=== PATIENT | female | born 1970 | race Caucasian/White ===

== ENCOUNTER 2021-05-27 22:17 | Emergency (ER) | payer OTHER, SELFPAY ==
[2021-05-27 22:24] VITALS: BP 166/87; PULSE 73; RESP 17; TEMP 37; O2SAT 100; BMI 23.0
[2021-05-27] MEDS: HYDROMORPHONE 1 MG INJ 2 MG IM (23:21)
[2021-05-27] MEDS: dexAMETHasone 4 MG TABLET 8 MG PO (23:21)
[2021-05-27] MEDS: carBAMazepine 200 MG TABLET PO (23:21)
--- NOTE | 2021-05-27 23:21 | ED.DENTAL ---
HPI - Dental/Oral General Chief complaint: Dental/Oral Stated complaint: BAD MOUTH DENTAL PAIN RIGHT SIDE Time Seen by Provider: 05/27/21 22:21 Source: patient Mode of arrival: Ambulatory Limitations: no limitations History of Present Illness HPI Narrative: 50-year-old woman with no significant medical history presents with ongoing right upper quadrant mouth/facial pain. She has tooth 5. That has been removed, 4. Is a dental implant this is tender and now both 3 and 6 are slightly tender. She has a history of chronic sinus issues as well as headaches and is having burning pain across the maxilla into the right side of the upper arch without abscess drainage or formation. At 1 point she was on amoxicillin and seem to be improving slightly however once stopping pain returned. She was seen by her dentist this morning who did x-rays but did not identify obvious abscess. Possibility of trigeminal neuralgia as a source of her pain was discussed. She has an appointment with the ear nose and throat physician coming up in mid June and her primary care provider next week. She has been using Excedrin, ibuprofen, Tylenol and has a couple of 2 mg Dilaudid tablets left over and combinations of all of these have not been effective pain control. After lying down to sleep today she found that she could not lay flat and could not get comfortable and was simply suffering enough that she was willing to come to the ER for additional help. She describes no fevers, cough, chest pain or palpitations. She does have occasional nausea but no vomiting. No abdominal pain constipation diarrhea dysuria. Related Data Home Medications Medication Instructions Recorded Confirmed ibuprofen 200 mg tablet (Advil) #0 01/29/13 Previous Rx's Medication Instructions Recorded carbamazepine 200 mg tablet 200 mg PO BID #60 tab 05/27/21 dexamethasone 4 mg tablet 8 mg PO DAILY #4 tab 05/27/21 hydromorphone 2 mg tablet 2 - 4 mg PO Q6H PRN #20 tab 05/27/21 Allergies Allergy/AdvReac Type Severity Reaction Status Date / Time CODEINE Allergy Unknown ABDOMINAL Uncoded 11/17/17 13:10 PAIN Review of Systems Review of Systems Narrative: Remainder of complete review of systems is otherwise unremarkable except for that included in the HPI. Patient History Social History Smoking Status: Never smoker Smoking Status: Never smoker alcohol intake frequency: a few times a month Substance Use Type: does not use Exam Narrative Exam Narrative: General: Alert appropriate in no acute distress HEENT: Tender from the pre-auricular area across the maxilla on the right side without inflammation or redness. Missing tooth 5. And the gum around that space looks healthy. Tooth 4, dental implant, somewhat tender with percussion. Tooth 3. Is somewhat tender to percussion as is tooth 6. No tenderness to percussion of maxillary sinus on the right side. No nasal discharge. Neck: No cervical adenopathy Respiratory: Able to speak in full sentences, no obvious respiratory distress Skin: No obvious rashes, warm and dry Neurologic: Grossly intact no obvious asymmetries or abnormalities Psych: appropriate insight and affect, cooperative Initial Vital Signs Initial Vital Signs: Vital Signs Temperature 98.6 F 05/27/21 22:24 Pulse Rate 73 05/27/21 22:24 Respiratory Rate 17 05/27/21 22:24 Blood Pressure 166/87 H 05/27/21 22:24 Pulse Oximetry 100 05/27/21 22:24 Course Orders Ordered: Discontinued Medications Carbamazepine (Carbamazepine 200 Mg Tablet) 200 mg PO NOW ONE Stop: 05/27/21 23:09 Dexamethasone (Dexamethasone 4 Mg Tablet) 8 mg PO NOW ONE Stop: 05/27/21 23:09 Hydromorphone HCl (Hydromorphone 1 Mg Inj) 2 mg IM NOW ONE Stop: 05/27/21 23:09 Vital Signs Vital signs: Vital Signs - 8 hr 05/27/21 22:24 Temperature 98.6 F Pulse Rate 73 Respiratory Rate 17 Blood Pressure 166/87 H Pulse Oximetry 100 MDM - Dental/Oral MDM Narrative Medical decision making narrative: 50-year-old woman with ongoing right upper quadrant dental/face pain. Possibilities include dental infection, complications with her implant, sinus infection, trigeminal neuralgia or other dental infection. At this time she is already on antibiotics will ask her to continue these. Will refill her Dilaudid and talked about more effective dosing of ibuprofen and Tylenol. Will add 3 days of Decadron for inflammation control. Have also suggested that she schedule an appointment with the oral surgeon for additional imaging and diagnostic help. Her tennis did mention the possibility of trigeminal neuralgia in giving the burning deep type neuropathic pain she is describing certainly is a possibility so Tegretol is added to the pain regimen with suggestions that she follow-up with her primary care physician. At this point there are no life-threatening issues and she is safe for home discharge. Discharge Plan Departure Patient Disposition: Home Clinical Impression: Acute facial pain Dental implant pain Qualifiers: Encounter type: initial encounter Qualified Code(s): T85.848A - Pain due to other internal prosthetic devices, implants and grafts, initial encounter Instructions: Trigeminal Neuralgia, DI for Dental Pain Activity Restrictions/Additional Instructions: Thank you for coming in today. It seems you have a lot going on There are multiple reasons that you could be having pain and it may be that there are multiple components of each of these. At this time, I am going to suggest that we treat each of the options and also suggest that you follow-up with Dr. Gerson Abreu, oral surgeon. He has the advanced imaging technology and the appropriate spectrum of clinical skills to help get to the bottom of this diagnostic dilemma In the meantime: For infection, please continue the Augmentin you are currently taking (total of 7 days) For inflammation, I am going to have you do 3 days of Decadron, 8 mg daily. You had your 1st dose in the emergency department For the possibility of trigeminal neuralgia, I am going to have you try 200 mg of Tegretol. This will need follow-up with your primary care physician. If alternate diagnoses are found, this medicine can be stopped. For acute pain control, using ibuprofen 400 mg with 1 Tylenol every 6 hours may be helpful. For severe pain you can add 2-4 mg of oral Dilaudid to this combination. Prescriptions: New dexamethasone 4 mg tablet 8 mg PO DAILY Qty: 4 RF: 0 carbamazepine 200 mg tablet 200 mg PO BID Qty: 60 RF: 0 hydromorphone 2 mg tablet 2 - 4 mg PO Q6H PRN (Reason: pain) Qty: 20 RF: 0 No Action ibuprofen [Advil] 200 MG tablet Qty: 0 RF: 0 Referrals: Gerson Abreu DMD [Physician] - Elisabet Peters PA-C [Primary Care Provider] -
[2021-05-27 23:42] VITALS: BP 147/82; PULSE 69; RESP 15; O2SAT 97
== END 2021-05-27 23:44 | disposition home or self-care (01) ==
PROVIDERS: Emergency Provider Emergency Medicine; Family Provider Physician Assistant; PCP Physician Assistant
DX: M27.69 Other endosseous dental implant failure (principal); R51.9 Headache, unspecified
CPT/HCPCS: 96372; 99283; J1170

== ENCOUNTER → 2021-06-25 12:36 | Outpatient (CLI) | payer OTHER, SELFPAY ==
--- NOTE | 2021-06-25 | DI.MRI.S_ITS ---
PROCEDURE: MR HEAD/BRAIN WO/W CON INDICATIONS: Atypical facial pain TECHNIQUE: Noncontrast axial T1 spin echo, axial T2 fast spin echo, sagittal and axial FLAIR, coronal T2 fast spin echo, axial gradient echo, axial diffusion and ADC through the brain. After the administration of contrast, axial and coronal 3D VIBE or T1 spin echo with fat saturation through the brain. COMPARISON: [facility], CT, CT ENT SINUS WITHOUT CONTRAST, 06/20/2021, 13:16. FINDINGS: Image quality: Excellent. CSF Spaces: Basal cisterns are patent. No extra-axial fluid collections. Ventricles are normal in size and shape. Brain: In this patient with this given history, scrutiny is given to the trigeminal nerves. To the limits of this standard protocol study, no abnormalities can be seen of the trigeminal nerves, including within the Meckel's caves. No midline shift. No intracranial bleeds or masses. No abnormal intracranial enhancement. The brainstem appears normal. Diffusion-weighted images demonstrate no acute ischemic insults. No chronic ischemic insults. Normal intravascular flow voids are present. Skull and face: Calvarial marrow is normal in signal. Orbits appear normal. Sinuses: Sinuses and mastoids appear clear. IMPRESSION: To the limits of this standard protocol study, no imaging explanation is found for the patient's presenting symptoms. No masses or abnormal enhancement can be seen. Dictated by: Heath Han M.D. on 06/25/2021 at 13:06 Approved by: Heath Han M.D. on 06/25/2021 at 13:08
== END ==
PROVIDERS: Family Provider Physician Assistant; PCP Student in an Organized Health Care Education/Training Program; Referring Provider Dentist; Visit Provider Dentist
DX: G50.1 Atypical facial pain (principal)
CPT/HCPCS: 70553; A9579

== ENCOUNTER → 2022-12-21 07:10 | Outpatient (CLI) | payer OTHER, SELFPAY ==
[2022-12-21 08:47] LABS: Add Manual Diff / Slide Review NO; Basophils Absolute Auto 0 /uL (0-100); Basophils Percent Auto 1.2 % (0-2); Eosinophils Absolute Auto 100 /uL (0-450); Hematocrit 39.2 % (36-46); Hemoglobin 13.4 g/dL (12.0-16.0); Lymphocytes Absolute Auto 1000 /uL (1100-4500); Lymphocytes Percent Auto 31.7 % (25-40); Mean Corpuscular HGB Conc 34.3 % (30-36); Mean Corpuscular Hemoglobin 30.9 PG (26-34); Monocytes Absolute Auto 300 /uL (0-900); Monocytes Percent Auto 7.7 % (3-14); Neutrophils Absolute Auto 1800 /uL (1500-7000); Neutrophils Percent Auto 55.4 % (50-75); Platelet Count 183 X10^3/uL (150-400); Red Blood Cell Count 4.35 X10^6/uL (4.0-5.2); Red Cell Distribution Width 13.8 % (11.6-14.8); White Blood Cell Count 3.3 X10^3/uL (4.5-11.0)
[2022-12-21 09:01] LABS: Alanine Aminotransferase 17 IU/L (<35); Albumin 4.2 g/dL (3.5-5.0); Albumin Globulin Ratio 1.4 (1.0-2.8); Alkaline Phosphatase 44 U/L (38-126); Aspartate Aminotransferase 24 IU/L (14-36); BUN Creatinine Ratio 13.8 (6-22); Blood Urea Nitrogen 11 mg/dL (7-17); Carbon Dioxide 29 mmol/L (22-32); Chloride 102 mmol/L (98-107); Cholesterol 213 mg/dL (140-199); Estimated Glomerular Filt Rate > 60 mL/min (>60); Globulin 3.1 g/dL (1.7-4.1); Glucose 84 mg/dL (70-100); HDL Cholesterol 77 mg/dL (40-60); HEMOLYSIS < 15 (0-50); LDL Cholesterol Calculated 127 mg/dL (<100); Potassium 4.1 mmol/L (3.4-5.1); Sodium 136 mmol/L (137-145); Total Protein 7.3 g/dL (6.3-8.2); Triglycerides 44 mg/dL (35-150)
[2022-12-21 09:35] LABS: Free T3, Triiodothyronine Free 3.42 pg/mL (2.77-5.27); Free T4, Direct Thyroxine 1.18 ng/dL (0.78-2.19)
[2022-12-21 09:49] LABS: Thyroid Stimulating Hormone 1.72 uIU/mL (0.47-4.68)
[2022-12-21 09:55] LABS: Creatinine Urine Random 185.2 mg/dL
[2022-12-21 10:00] LABS: Microalbumi Creatinin Ratio Ur 4.8 ug/mg CR (<30); Microalbumin Urine Random 0.9 mg/dL (0-1.6)
[2022-12-21 16:11] LABS: HIV 1 & 2 Ab/Ag 4th Gen Combo NEGATIVE (NEGATIVE); Hep C Virus Ab w/Reflex Quant NEGATIVE s/c (NEGATIVE)
== END ==
PROVIDERS: Family Provider Physician Assistant; PCP Nurse Practitioner; Referring Provider Nurse Practitioner; Visit Provider Nurse Practitioner
DX: Z00.00 Encounter for general adult medical examination without abnormal findings (principal); Z11.59 Encounter for screening for other viral diseases; Z11.4 Encounter for screening for human immunodeficiency virus [HIV]
CPT/HCPCS: 36415; 80053; 80061; 82043; 82570; 84439; 84443; 84481; 85025; 86803; 87389

== ENCOUNTER 2023-03-11 06:38 | Day surgery (SDC) | payer OTHER, SELFPAY ==
[2023-03-11] VITALS (7 sets, daily range): BP systolic 117–138; BP diastolic 73–86; PULSE 71–84; RESP 12–16; TEMP 35.8–36.3; O2SAT 98–100; BMI 23.0
[2023-03-11] MEDS: LACTATED RINGERS 1,000 ML 150 ML IV (07:12)
--- NOTE | 2023-03-11 07:42 | P.HP_ITS ---
History of Present Illness History of Present Illness Date Patient Seen: 03/11/23 Time Patient Seen: 07:42 Chief complaint: Screening Colonoscopy Narrative: Kristi is a 52-year-old woman who is here for a screening colonoscopy. She has never had 1 before. She has no known family history of colon cancer. [facility] Medical History (Updated 03/11/23 @ 07:42 by Chris Mcnair MD) Anxiety (~2020) BMS (burning mouth syndrome) (~2020) Chronic cough (~2021) Hyperlipidemia Migraines Family History Father History of heart disease Hypertension Hyperlipidemia Mother Low sodium levels Low TSH level Grandfather Cancer Grandmother HIV disease Grandfather History of heart disease Social History household members: significant other Smoking Status: Never smoker Meds Home Medications and Allergies Home Medications Medication Instructions Recorded Confirmed Type doxepin 10 mg/mL oral concentrate 10 mg PO DAILY PRN Sleep 10/27/22 03/11/23 History nortriptyline 10 mg capsule 30 mg PO BEDTIME sleep 10/27/22 03/11/23 History hydroxyzine pamoate 50 mg capsule 50 mg PO QID PRN burning mouth 01/11/23 03/11/23 Rx (Vistaril) disease #30 caps sumatriptan succinate 100 mg tablet See Rx Instructions PO .COMPLEX 01/11/23 01/11/23 Rx #27 tabs peg 3350-electrolytes 236 240 ml PO Q10M #4,000 mL 02/18/23 Rx gram-22.74 gram-6.74 gram-5.86 gram solution (Golytely) Allergies Allergy/AdvReac Type Severity Reaction Status Date / Time carbamazepine [From Tegretol] Allergy Mild Dizziness Verified 03/11/23 06:57 CODEINE Allergy Unknown ABDOMINAL Uncoded 03/11/23 06:57 PAIN Exam Vital Signs (past 8 hours): - 03/11/23 07:00 Temperature 97.3 F L Pulse Rate 79 Respiratory Rate 16 Blood Pressure 127/81 Pulse Oximetry 98 Oxygen Delivery Method Room Air Oxygen Delivery Method Room Air Const General: healthy appearing Assessment & Plan Assessment and plan (1) Colon cancer screening: Status: Acute Plan We reviewed the risks and benefits of colonoscopy for colon cancer screening and she would like to proceed.
--- NOTE | 2023-03-11 08:25 | PM.OP.COLON ---
Operative Date/Time/Diagnoses Date of procedure: 03/11/23 Time of procedure: 08:25 Pre-op diagnosis: Colon cancer screening Post-op diagnosis: same Procedure & Clinicians Study performed: Colonoscopy Same procedure as scheduled: Yes Surgeon: Chris Mcnair Procedure Notes Procedure in detail: Surgeon: Chris Mcnair MD Anesthesia: Dinesh Camejo CRNA Procedure: The patient was brought to the endoscopy suite, placed in left lateral decubitus position. The patient was connected to monitoring devices. A time-out was performed. Sedation was administered. Once the patient was adequately sedated, a digital rectal exam was performed and was normal. The scope was then inserted and advanced to the cecum where the appendiceal orifice was identified and photographed. Prep was good overall that she would a lot of seeds in her colon to be irrigated out and there were some delays because the suction channel had to be unclogged several times. The mucosa was thoroughly inspected. No abnormalities were found. The scope was retroflexed in the rectum. No other abnormalities were seen. The scope was straightened and removed. The patient was awakened and brought to recovery. Scope withdrawal time: 24 minutes Sedation time: 31 minutes EBL: 0 Findings: Normal colon Post-procedure Recommendations: Colonoscopy in 10 years Disposition: PACU
--- NOTE | 2023-03-11 09:16 | SUR.PHASEII ---
0915 hrs Pt states still too sleepy to go home. Coffee supplied.
== END 2023-03-11 09:38 | disposition home or self-care (01) ==
PROVIDERS: Family Provider Physician Assistant; PCP Nurse Practitioner; Referring Provider Surgery; Visit Provider Surgery
PROC: 0DJD8ZZ Inspection of Lower Intestinal Tract, Via Natural or Artificial Opening Endoscopic (ICD-10-PCS; CPT 45378; principal; 2023-03-11 07:45)
DX: Z12.11 Encounter for screening for malignant neoplasm of colon (principal)
CPT/HCPCS: 45378; J2704

== ENCOUNTER → 2025-02-16 10:29 | Outpatient (CLI) | payer OTHER, SELFPAY ==
--- NOTE | 2025-02-16 10:31 | DI.RAD.S_ITS ---
PROCEDURE: XR ANKLE RT 2V INDICATIONS: screening TECHNIQUE: 3 views of the ankle were acquired. COMPARISON: None. FINDINGS: Bones: No fractures or dislocations. Well corticated osseous fragment adjacent to the navicular may represent sequelae of remote trauma. Ankle mortise is normally aligned. No suspicious bony lesions. Soft tissues: No tibiotalar joint effusion. Achilles tendon appears normal. IMPRESSION: No acute bony abnormality or significant effusion. Dictated by: Joe Roy M.D. on 02/18/2025 at 17:46 Approved by: Joe Roy M.D. on 02/18/2025 at 17:47
== END ==
LOC: RAD 10:30
PROVIDERS: Family Provider Physician Assistant; PCP Family Medicine; Referring Provider Family Medicine; Visit Provider Family Medicine
DX: M25.571 Pain in right ankle and joints of right foot (principal)
CPT/HCPCS: 73600

== ENCOUNTER → 2025-02-27 06:54 | Outpatient (CLI) | payer OTHER, SELFPAY ==
[2025-02-27 07:34] LABS: Add Manual Diff / Slide Review NO; Hematocrit 39.6 % (36-46); Hemoglobin 13.8 g/dL (12.0-16.0); Lymphocytes Absolute Auto 1100 /uL (1100-4500); Mean Corpuscular HGB Conc 34.8 % (30-36); Mean Corpuscular Hemoglobin 31.8 PG (26-34); Mean Corpuscular Volume 91.2 fL (80-100); Platelet Count 164 X10^3/uL (150-400)
[2025-02-27 07:46] LABS: Alanine Aminotransferase 16 IU/L (<35); Albumin 4.4 g/dL (3.5-5.0); Albumin Globulin Ratio 1.4 (1.0-2.8); Alkaline Phosphatase 47 U/L (38-126); Blood Urea Nitrogen 9 mg/dL (7-17); Calcium 9.0 mg/dL (8.4-10.2); Carbon Dioxide 25 mmol/L (22-32); Chloride 103 mmol/L (98-107); Cholesterol 193 mg/dL (140-199); Estimated Glomerular Filt Rate > 60 mL/min (>60); Globulin 3.1 g/dL (1.7-4.1); Glucose 100 mg/dL (70-99); HDL Cholesterol 74 mg/dL (40-60); HEMOLYSIS < 15 (0-50); Potassium 4.4 mmol/L (3.4-5.1); Sodium 137 mmol/L (137-145); Total Protein 7.5 g/dL (6.3-8.2); Triglycerides 64 mg/dL (35-150)
[2025-02-27 08:18] LABS: TSH w/ Reflex to FT4 3.60 uIU/mL (0.47-4.68)
== END ==
PROVIDERS: Family Provider Family Medicine; PCP Family Medicine; Referring Provider Family Medicine; Visit Provider Family Medicine
DX: Z00.00 Encounter for general adult medical examination without abnormal findings (principal); F41.9 Anxiety disorder, unspecified; K14.6 Glossodynia; E78.5 Hyperlipidemia, unspecified; Z76.89 Persons encountering health services in other specified circumstances
CPT/HCPCS: 36415; 80053; 80061; 82672; 84144; 84443; 84999; 85025

== ENCOUNTER → 2025-03-21 08:06 | Outpatient (CLI) | payer OTHER, SELFPAY ==
[2025-03-21 09:05] LABS: Add Manual Diff / Slide Review NO; Hematocrit 39.5 % (36-46); Hemoglobin 13.4 g/dL (12.0-16.0); Lymphocytes Absolute Auto 1000 /uL (1100-4500); Mean Corpuscular HGB Conc 33.8 % (30-36); Mean Corpuscular Hemoglobin 31.2 PG (26-34); Mean Corpuscular Volume 92.1 fL (80-100); Platelet Count 168 X10^3/uL (150-400)
[2025-03-21 10:19] LABS: Vitamin B12 852 pg/mL (239-931)
== END ==
PROVIDERS: Family Provider Family Medicine; PCP Family Medicine; Referring Provider Family Medicine; Visit Provider Family Medicine
DX: D72.829 Elevated white blood cell count, unspecified (principal); E53.8 Deficiency of other specified B group vitamins
CPT/HCPCS: 36415; 82607; 85025; 85651; 86140

== ENCOUNTER 2025-03-27 17:00 | Outpatient (RCR) | payer OTHER, SELFPAY ==
--- NOTE | 2025-02-21 15:57 | PT.OIE ---
Addendum entered and electronically signed by Isaac Smyth, PT 02/21/25 16:01: PT direct supervision and direction to student PT Erlin Quinn throughout session Original Note: Current Diagnoses Pain in right ankle and joints of right foot (02/20/25) Past Medical History (Last Reviewed 02/16/25 @ 10:43 by Mansoor Dobson DO) Anxiety (~2020) BMS (burning mouth syndrome) (~2020) Chronic cough (~2021) Hyperlipidemia Migraines Moderate right ankle sprain Visit Care Team Role Provider Type Padmini Trivedi DO Family Provider Physician Primary Care Provider Specialty: [facility] Practice Address: [address] [place] [address], [facility] [address], [place], [address] Email: [email or web address] Mansoor Dobson DO Attending Provider Physician Referring Provider Specialty: [facility] Address: [address] [place] [address], [address] Email: [email or web address] Physical Therapy Initial Evaluation PT-OP-A Visit Information Start: 02/20/25 15:42 Freq: Status: Active Protocol: Document 02/20/25 14:30 LFG (Rec: 02/20/25 16:33 LFG [id number]) Out-Patient Physical Therapy Visit Information Visit Information Visit Type Initial Evaluation Visit Start Time 14:30 Visit Stop Time 15:12 Visit Number 1 Evaluation Information Evaluation Date 02/20/25 PT-OP-B Current Condition Start: 02/20/25 15:42 Freq: Status: Active Protocol: Document 02/20/25 14:30 LFG (Rec: 02/20/25 16:33 LFG [id number]) Current Condition History of Current Condition Onset Date November 2024 Current Complaints Right ankle pain History of Current Patient is a 54 year old female who rolled her R ankle Condition while on a rainy hike going downhill in December 01. Patient was able to walk down and go home okay but the ankle did swell up and begin to start aching. Began compression and ice for several weeks after which did help the ankle swelling/pain but did not continue. Patient reports healing progression seems to have plateaued. X rays revealed no fractures. PCP recommended to get an MRI if after a month of PT did not help/progress healing. Patient denied any numbness or tingling, exclusively achy. Prior Treatments and History of neck/upper back pain Tests Occasional L hip/low back pain - slipped discs over the course of 10yrs R sciatic pain Treatment Goals Patient/Caregiver Patient would like to reduce puffiness so that she Goals can go back to wearing sandals PT-OP-C Subjective Start: 02/20/25 15:42 Freq: Status: Active Protocol: Document 02/20/25 14:30 LFG (Rec: 02/20/25 16:33 LFG [id number]) OP-PT Subjective Patient Comments Patient Comments Patient wondering why friend who broke their ankle around the same time has healed while patient is still experiencing swelling and achynes. while patient Patient will be traveling to [place] for sport card event and wont be back till 03/13/25 for PT Patient Reported Same Progress Patient Questionnaires Lower Extremity Functional Scale LEFS Score 80/80 LEFS Impairment 0% Impaired (Score 80) PT-OP-F Manual Assessment Start: 02/20/25 15:42 Freq: Status: Active Protocol: Document 02/20/25 14:30 LFG (Rec: 02/20/25 16:33 LFG [id number]) Manual Assessments Soft Tissue Assessment Soft Tissue Mobility TTP over R ATF and PTF ligaments Assessment PT-OP-G Mobility & Gait Start: 02/20/25 15:42 Freq: Status: Active Protocol: Document 02/20/25 14:30 LFG (Rec: 02/20/25 16:33 LFG [id number]) OP Gait Assessment Gait Gait Assistance Independent Required: Able to Maintain Yes Weight Bearing Status During Gait Comments Gait Comments LLE slight ER during swing phase PT-OP-J Posture/Palpation/Skin Start: 02/20/25 15:42 Freq: Status: Active Protocol: Document 02/20/25 14:30 LFG (Rec: 02/20/25 16:33 LFG [id number]) Skin Assessment Edema Assessment R Ankle Edema Type Non-Pitting Edema Appearance Discolored,Puffy Circumference Measurement L ankle Measurement ( 48.8 Centimeters) Comments Figure 8 R ankle Measurement ( 49.6 Centimeters) Comments Figure 8 PT-OP-K Range of Motion Start: 02/20/25 15:42 Freq: Status: Active Protocol: Document 02/20/25 14:30 LFG (Rec: 02/20/25 16:33 LFG [id number]) Ankle and Foot Goniometric Range of Motion Ankle and Foot Right Active Testing Position Sitting Dorsiflexion with 15 Knee Flexed Plantarflexion 36 Inversion 32 Eversion 21 Left Active Testing Position Sitting Dorsiflexion with 10 Knee Flexed Plantarflexion 50 Inversion 32 Eversion 30 PT-OP-L Special Tests Start: 02/20/25 15:42 Freq: Status: Active Protocol: Document 02/20/25 14:30 LFG (Rec: 02/20/25 16:33 LFG [id number]) Special Tests Foot/Ankle Special Tests Anterior Draw Test Results negative PT-OP-M Strength Start: 02/20/25 15:42 Freq: Status: Active Protocol: Document 02/20/25 14:30 LFG (Rec: 02/20/25 16:33 LFG [id number]) Ankle/Foot Strength Ankle and Foot Manual Muscle Testing Right Dorsiflexion (L4) 5 Normal Plantarflexion (S1) 4 Good Inversion 4 Good Eversion (S1) 5 Normal Left Dorsiflexion (L4) 5 Normal Plantarflexion (S1) 4+ Good+ Inversion 5 Normal Eversion (S1) 5 Normal PT-OP-Q Treatments Start: 02/20/25 15:42 Freq: Status: Active Protocol: Document 02/20/25 14:30 LFG (Rec: 02/20/25 16:33 LFG [id number]) Self-Care/Home Management Treatment Education Patient Education Home Exercise Program Activities Self-Care/Home 4 way ankle banded exercises Management 2x20 daily Activities PT-OP-T Assessment and Plan Start: 02/20/25 15:42 Freq: Status: Active Protocol: Document 02/20/25 14:30 LFG (Rec: 02/20/25 16:33 LFG [id number]) Physical Therapy Assessment Rehab Potential Rehabilitation Good Potential Evaluation Complexity Number of Personal 1-2 Factors/ Comorbidities Number of Body 4 or More Systems Impaired Clinical Stable Presentation at Evaluation Impairments Impairments Activity Tolerance,Balance,Coordination,Edema, Functional Activities,Functional Mobility,Pain,ROM, Sensation,Soft Tissue Mobility,Strength,Tone Goals 3 Impairment R ankle AROM limited [employer] Goal (LTG) Patient will improve active plantarflexion from 36 deg to 50 deg and eversion from 21 deg to 30 deg w/o any pain to allow patient to return to previous level of activity 2 Impairment R ankle weakness [employer] Goal (LTG) Patient will increase R ankle plantarflexion/inversion from a 4/5 -> to 5/5 w/o any pain to allow patient to return to previous level of activity LTG Duration 05/08/25 1 Impairment Patient does not have a cohesive HEP Short Term Goal (STG Patient will follow a cohesively HEP independently ) STG Duration 04/03/25 Assessment Summary Assessment Patient presents to PT with signs and symptoms consistent with a possible R ankle ATF and PTF ligament sprain. R ankle AROM measurements demonstrate limitations in both plantarflexion and eversion. MMT demonstrate R ankle weakness in plantarflexion and inversion. Minimal deviations found in gait pattern. Ankle circumferential measurements also revealed increased swelling in R>L ankle. Advised that if after 1 month of PT pt notes no improving symptoms, MRI would be highly recommended. Patient will likely benefit from skilled therapeutic intervention focusing gentle ankle/LE strengthening, ROM, STM, activity tolerance, and pain management. Physical Therapy Plan Frequency and Duration Frequency of 1x/Week Treatment Plan of Care Start 02/20/25 Date Plan of Care End 05/08/25 Date Therapeutic Interventions Therapeutic Balance Training,Coordination Training,Gait Training, Interventions Home Exercise Program,Joint Mobilizations,Manual Therapy,Neuromuscular Re-education,Patient/Caregiver Education,Self-Care/Home Management,Soft Tissue Mobilization,Taping,Therapeutic Activities,Therapeutic Exercises Modalities Biofeedback,Cold Pack/Ice Massage,Electric Stimulation, Hot Packs,Infrared Therapy,Iontophoresis,Paraffin Bath, Traction- Mechanical,Ultrasound,Vasopneumatic Devices Next Visit Focus/Plan Next Note Type Treatment Note Next Visit Plan Review HEP Begin gentle ankle/LE strengthening, ROM, STM, activity tolerance, and pain management
--- NOTE | 2025-02-21 15:57 | PT.OPPOC ---
Addendum entered and electronically signed by Isaac Smyth, PT 02/21/25 16:02: PT direct supervision and direction to student PT Erlin Quinn throughout session Original Note: Physical, Occupational & Speech Therapy At [facility] Current Diagnoses Pain in right ankle and joints of right foot (02/20/25) Visit Care Team Role Provider Type Padmini Trivedi DO Family Provider Physician Primary Care Provider Specialty: [facility] Practice Address: [address] [place] [address], [address], [place], [facility] Email: [email or web address] Mansoor Dobson DO Attending Provider Physician Referring Provider Specialty: [facility] Address: [address] [place] [address], [facility] Email: [email or web address] Plan Of Care PT-OP-B Current Condition Start: 02/20/25 15:42 Freq: Status: Active Protocol: Document 02/20/25 14:30 LFG (Rec: 02/20/25 16:33 LFG [id number]) Current Condition History of Current Condition Onset Date November 2024 Current Complaints Right ankle pain History of Current Patient is a 54 year old female who rolled her R ankle Condition while on a rainy hike going downhill in December 01. Patient was able to walk down and go home okay but the ankle did swell up and begin to start aching. Began compression and ice for several weeks after which did help the ankle swelling/pain but did not continue. Patient reports healing progression seems to have plateaued. X rays revealed no fractures. PCP recommended to get an MRI if after a month of PT did not help/progress healing. Patient denied any numbness or tingling, exclusively achy. Prior Treatments and History of neck/upper back pain Tests Occasional L hip/low back pain - slipped discs over the course of 10yrs R sciatic pain Treatment Goals Patient/Caregiver Patient would like to reduce puffiness so that she Goals can go back to wearing sandals PT-OP-T Assessment and Plan Start: 02/20/25 15:42 Freq: Status: Active Protocol: Document 02/20/25 14:30 LFG (Rec: 02/20/25 16:33 LF [id number]) Physical Therapy Assessment Rehab Potential Rehabilitation Good Potential Evaluation Complexity Number of Personal 1-2 Factors/ Comorbidities Number of Body 4 or More Systems Impaired Clinical Stable Presentation at Evaluation Impairments Impairments Activity Tolerance,Balance,Coordination,Edema, Functional Activities,Functional Mobility,Pain,ROM, Sensation,Soft Tissue Mobility,Strength,Tone Goals 3 Impairment R ankle AROM limited Forging Engineer Goal (LTG) Patient will improve active plantarflexion from 36 deg to 50 deg and eversion from 21 deg to 30 deg w/o any pain to allow patient to return to previous level of activity 2 Impairment R ankle weakness Forging Engineer Goal (LTG) Patient will increase R ankle plantarflexion/inversion from a 4/5 -> to 5/5 w/o any pain to allow patient to return to previous level of activity LTG Duration 05/08/25 1 Impairment Patient does not have a cohesive HEP Short Term Goal (STG Patient will follow a cohesively HEP independently ) STG Duration 04/03/25 Assessment Summary Assessment Patient presents to PT with signs and symptoms consistent with a possible R ankle ATF and PTF ligament sprain. R ankle AROM measurements demonstrate limitations in both plantarflexion and eversion. MMT demonstrate R ankle weakness in plantarflexion and inversion. Minimal deviations found in gait pattern. Ankle circumferential measurements also revealed increased swelling in R>L ankle. Advised that if after 1 month of PT pt notes no improving symptoms, MRI would be highly recommended. Patient will likely benefit from skilled therapeutic intervention focusing gentle ankle/LE strengthening, ROM, STM, activity tolerance, and pain management. Physical Therapy Plan Frequency and Duration Frequency of 1x/Week Treatment Plan of Care Start 02/20/25 Date Plan of Care End 05/08/25 Date Therapeutic Interventions Therapeutic Balance Training,Coordination Training,Gait Training, Interventions Home Exercise Program,Joint Mobilizations,Manual Therapy,Neuromuscular Re-education,Patient/Caregiver Education,Self-Care/Home Management,Soft Tissue Mobilization,Taping,Therapeutic Activities,Therapeutic Exercises Modalities Biofeedback,Cold Pack/Ice Massage,Electric Stimulation, Hot Packs,Infrared Therapy,Iontophoresis,Paraffin Bath, Traction- Mechanical,Ultrasound,Vasopneumatic Devices Next Visit Focus/Plan Next Note Type Treatment Note Next Visit Plan Review HEP Begin gentle ankle/LE strengthening, ROM, STM, activity tolerance, and pain management Plan of Care Dates Plan of Care Start Date 02/20/25 Plan of Care End Date 05/08/25 Electronically Signed by: Erlin James, PT 02/21/25 [id number] If you are in agreement with this Plan of Care, please return a signed and dated copy. I have reviewed this Plan of Care and certify that the skilled therapy services above are required to meet the patient?s needs. Physician Signature Date Printed Name and Credentials Clinical Instructor Signature Printed Name and Credentials
--- NOTE | 2025-03-21 12:25 | PT-OP ANOTE ---
Therapist called and spoke to pt regarding her cancellations of her follow-up appointments. Due to a miscommunication, pt was under the impression that she was only expected to come back in three months, so she had canceled the rest of her appointments. Therapist suggested she schedule a follow-up next week, pt in agreement.
--- NOTE | 2025-03-27 17:33 | PT.OPDS ---
Current Diagnoses Pain in right ankle and joints of right foot (03/27/25) Visit Care Team Role Provider Type Padmini Trivedi DO Family Provider Physician Primary Care Provider Specialty: Family Practice Address: [address] [place] [address], [facility] [address], [place], [address] Email: [email or web address] Mansoor Dobson DO Attending Provider Physician Referring Provider Specialty: [facility] Practice Address: [address] [place] [address], [address] Email: [email or web address] Visit Number Visit Number 2 Discharge Summary PT-OP-A Visit Information Start: 02/20/25 15:42 Freq: Status: Active Protocol: Document 03/27/25 17:00 DCW (Rec: 03/27/25 17:32 DCW [id number]) Out-Patient Physical Therapy Visit Information Visit Information Visit Type Discharge Summary Visit Start Time 17:00 Visit Stop Time 17:25 Visit Number 2 Number of APRICOT WASHER Visits 0 Evaluation Information Evaluation Date 02/20/25 PT-OP-B Current Condition Start: 02/20/25 15:42 Freq: Status: Active Protocol: Document 02/20/25 14:30 LFG (Rec: 02/20/25 16:33 LFG [id number]) Current Condition History of Current Condition Onset Date November 2024 Current Complaints Right ankle pain History of Current Patient is a 54 year old female who rolled her R ankle Condition while on a rainy hike going downhill in December 01. Patient was able to walk down and go home okay but the ankle did swell up and begin to start aching. Began compression and ice for several weeks after which did help the ankle swelling/pain but did not continue. Patient reports healing progression seems to have plateaued. X rays revealed no fractures. PCP recommended to get an MRI if after a month of PT did not help/progress healing. Patient denied any numbness or tingling, exclusively achy. Prior Treatments and History of neck/upper back pain Tests Occasional L hip/low back pain - slipped discs over the course of 10yrs R sciatic pain Treatment Goals Patient/Caregiver Patient would like to reduce puffiness so that she Goals can go back to wearing sandals PT-OP-C Subjective Start: 02/20/25 15:42 Freq: Status: Active Protocol: Document 03/27/25 17:00 DCW (Rec: 03/27/25 17:32 DCW [id number]) OP-PT Subjective Patient Comments Patient Comments Pt feeling a little better, still getting stiff or sore when squatting or putting pressure on it. Not swelling as much, not as stiff and sore when at rest. PT-OP-F Manual Assessment Start: 02/20/25 15:42 Freq: Status: Active Protocol: Document 02/20/25 14:30 LFG (Rec: 02/20/25 16:33 LFG [id number]) Manual Assessments Soft Tissue Assessment Soft Tissue Mobility TTP over R ATF and PTF ligaments Assessment PT-OP-G Mobility & Gait Start: 02/20/25 15:42 Freq: Status: Active Protocol: Document 02/20/25 14:30 LFG (Rec: 02/20/25 16:33 LFG [id number]) OP Gait Assessment Gait Gait Assistance Independent Required: Able to Maintain Yes Weight Bearing Status During Gait Comments Gait Comments LLE slight ER during swing phase PT-OP-J Posture/Palpation/Skin Start: 02/20/25 15:42 Freq: Status: Active Protocol: Document 02/20/25 14:30 LFG (Rec: 02/20/25 16:33 LFG [id number]) Skin Assessment Edema Assessment R Ankle Edema Type Non-Pitting Edema Appearance Discolored,Puffy Circumference Measurement L ankle Measurement ( 48.8 Centimeters) Comments Figure 8 R ankle Measurement ( 49.6 Centimeters) Comments Figure 8 PT-OP-K Range of Motion Start: 02/20/25 15:42 Freq: Status: Active Protocol: Document 02/20/25 14:30 LFG (Rec: 02/20/25 16:33 LFG [id number]) Ankle and Foot Goniometric Range of Motion Ankle and Foot Right Active Testing Position Sitting Dorsiflexion with 15 Knee Flexed Plantarflexion 36 Inversion 32 Eversion 21 Left Active Testing Position Sitting Dorsiflexion with 10 Knee Flexed Plantarflexion 50 Inversion 32 Eversion 30 PT-OP-L Special Tests Start: 02/20/25 15:42 Freq: Status: Active Protocol: Document 02/20/25 14:30 LFG (Rec: 02/20/25 16:33 LFG [id number]) Special Tests Foot/Ankle Special Tests Anterior Draw Test Results negative PT-OP-M Strength Start: 02/20/25 15:42 Freq: Status: Active Protocol: Document 02/20/25 14:30 LFG (Rec: 02/20/25 16:33 LFG [id number]) Ankle/Foot Strength Ankle and Foot Manual Muscle Testing Right Dorsiflexion (L4) 5 Normal Plantarflexion (S1) 4 Good Inversion 4 Good Eversion (S1) 5 Normal Left Dorsiflexion (L4) 5 Normal Plantarflexion (S1) 4+ Good+ Inversion 5 Normal Eversion (S1) 5 Normal PT-OP-T Assessment and Plan Start: 02/20/25 15:42 Freq: Status: Active Protocol: Document 03/27/25 17:00 DCW (Rec: 03/27/25 17:32 DCW [id number]) Physical Therapy Assessment Impairments Impairments Activity Tolerance,Balance,Coordination,Edema, Functional Activities,Functional Mobility,Pain,ROM, Sensation,Soft Tissue Mobility,Strength,Tone Goals 3 Impairment R ankle AROM limited Group Home Goal (LTG) Patient will improve active plantarflexion from 36 deg to 50 deg and eversion from 21 deg to 30 deg w/o any pain to allow patient to return to previous level of activity 2 Impairment R ankle weakness Mallet Cutter Goal (LTG) Patient will increase R ankle plantarflexion/inversion from a 4/5 -> to 5/5 w/o any pain to allow patient to return to previous level of activity LTG Duration Met 1 Impairment Patient does not have a cohesive HEP Short Term Goal (STG Patient will follow a cohesively HEP independently ) STG Duration Met Assessment Summary Assessment Pt has been compliant with her HEP, is progressing well with functional mobility and pain. Swelling has been eliminated, pt pain-free with most activity, able to wear platform heels to a wedding. Feeling good about level of function and recent progress. Therapist and patient both agreeable to discharge at this time. Physical Therapy Plan Frequency and Duration Frequency of 1x/Week Treatment Plan of Care Start 02/20/25 Date Plan of Care End 05/08/25 Date Therapeutic Interventions Therapeutic Balance Training,Coordination Training,Gait Training, Interventions Home Exercise Program,Joint Mobilizations,Manual Therapy,Neuromuscular Re-education,Patient/Caregiver Education,Self-Care/Home Management,Soft Tissue Mobilization,Taping,Therapeutic Activities,Therapeutic Exercises Modalities Cold Pack/Ice Massage,Electric Stimulation,Hot Packs, Infrared Therapy,Ultrasound Next Visit Focus/Plan Next Note Type Treatment Note Next Visit Plan Review HEP Begin gentle ankle/LE strengthening, ROM, STM, activity tolerance, and pain management
== END 2025-06-26 10:00 | disposition home or self-care (01) ==
LOC: PHYS 17:00
PROVIDERS: Family Provider Family Medicine; PCP Family Medicine; Referring Provider Family Medicine; Visit Provider Family Medicine
DX: M25.571 Pain in right ankle and joints of right foot (principal)
CPT/HCPCS: 97110; 97140; 97161